=== PATIENT | female | born 1975 | race Caucasian/White ===

== ENCOUNTER → 2024-08-03 15:30 | Outpatient (REF) | payer OTHER, SELFPAY | LOC: MRI 3T 15:30 | PROVIDERS: ATTENDING PHYSICIAN Physician Assistant; FAMILY PHYSICIAN Internal Medicine | DX: N64.4 Mastodynia (principal); T85.9XXA Unspecified complication of internal prosthetic device, implant and graft, initial encounter; Z85.3 Personal history of malignant neoplasm of breast | CPT/HCPCS: 77049; A9585 ==